=== PATIENT | female | born 1960 | race Caucasian/White ===

== ENCOUNTER 2017-09-01 08:25 | Inpatient (IN) | payer MEDICAID ==
[~2017-09-01] VITALS: Ht 152.4 cm; Wt 81.2 kg
[~2017-09-01 08:25] MED LIST: ALLO100T PO; CLAR10 PO; DILT90TA2 PO; FAMO20TA8 PO; LIP40 PO; MONT10TA21 PO; P20 PO; RIVA20TA PO; SPIR25TA6 PO
[2017-09-01] MEDS ORDERED: IPRATROPIUM BROMIDE (0.02%) 0.5MG/2.5ML NEB HHN STA (09:15)
[2017-09-01] MEDS ORDERED: DILTIAZEM HCL 5MG/ML 5ML VIAL IV ONE (09:15)
[2017-09-01] MEDS ORDERED: ASPIRIN 81MG TABLET PO STA (09:15)
[2017-09-01] MEDS ORDERED: ALBUTEROL (0.083%) 2.5MG/3ML NEB HHN STA (09:15)
[2017-09-01 10:00] LABS: HEMATOCRIT. 35.1 % (36.0-48.0); HEMOGLOBIN. 11.7 g/dL (12.0-16.0); MEAN CORPUSCULAR HEMOGLOBIN 27.9 pg (28.0-32.0); MEAN PLATELET VOLUME 7.3 fl (7.4-10.4); PLATELET 194 x1000/uL (130-400); RED BLOOD CELL COUNT 4.17 mill/uL (4.2-5.4); RED CELL DISTRIBUTION WIDTH 19.5 % (11.6-14.6)
[2017-09-01 10:07] LABS: CHLORIDE 104 mEq/L (98-107)
[2017-09-01 10:40] LABS: PLATELET ESTIMATE NORMAL
[2017-09-01] MEDS: FUROSEMIDE 40MG/4ML VIAL IVP NR ×2 (13:31→14:12)
[2017-09-01 16:00] VITALS: BP 131/70
[2017-09-01 16:02] VITALS: BP 131/70
[2017-09-01] MEDS ORDERED: DIPHENHYDRAMINE 50MG/ML VIAL IV PRN (18:45)
[2017-09-01] MEDS ORDERED: ONDANSETRON HCL 4MG/2ML VIAL IV PRN (18:45)
[2017-09-01 19:47] VITALS: BP 139/73
[2017-09-01] MEDS ORDERED: DIGOXIN 500MCG/2ML AMP IV NR (20:30)
[2017-09-01] MEDS: ALPRAZOLAM 0.5 MG TABLET PO PRN (21:07)
[2017-09-01] MEDS: ATORVASTATIN CALCIUM 40MG TABLET PO SCH (21:07)
[2017-09-01] MEDS: MONTELUKAST SODIUM 10MG TABLET PO SCH (21:07)
[2017-09-01] MEDS: FAMOTIDINE 20MG TABLET PO SCH (21:07)
[2017-09-01] MEDS: ACETAMINOPHEN 325MG TABLET PO PRN (21:17)
[2017-09-01] MEDS: DILTIAZEM HCL 90MG TABLET PO SCH (23:02)
[2017-09-01] MEDS: SODIUM CHLORIDE 0.9% INJ 3ML FLUSH IVF SCH (23:59)
[2017-09-02] MEDS ORDERED: DIGOXIN 500MCG/2ML AMP IV NR (00:30)
[2017-09-02 01:00] VITALS: BP 164/76
[2017-09-02 05:00] VITALS: BP 160/77
[2017-09-02] MEDS: ACETAMINOPHEN 325MG TABLET PO PRN (05:43)
[2017-09-02] MEDS: SODIUM CHLORIDE 0.9% INJ 3ML FLUSH IVF SCH ×3 (05:44→21:00)
[2017-09-02] MEDS: CLONIDINE 0.1MG TABLET PO PRN ×3 (05:44→23:16)
[2017-09-02] MEDS: DILTIAZEM HCL 90MG TABLET PO SCH ×3 (05:44→21:00)
[2017-09-02 08:00] VITALS: BP 153/61
[2017-09-02] MEDS: LORATADINE 10MG TABLET PO SCH (08:21)
[2017-09-02] MEDS: SPIRONOLACTONE 25MG TABLET PO SCH (08:21)
[2017-09-02] MEDS: MAGNESIUM/ALUMINUM HYDROXIDE/SIMETHICONE 30ML UDC PO PRN (08:26)
[2017-09-02] MEDS: BUDESONIDE 0.25MG/2ML NEB HHN SCH (08:49)
[2017-09-02] MEDS: IPRATROPIUM BROMIDE (0.02%) 0.5MG/2.5ML NEB HHN PRN ×3 (08:49→20:34)
[2017-09-02] MEDS: ALLOPURINOL 100 MG TABLET PO SCH (10:22)
[2017-09-02 12:00] VITALS: BP 147/58
[2017-09-02] MEDS ORDERED: CEFTRIAXONE 2 G PREMIX 50 ML IV SCH (14:00)
[2017-09-02] MEDS: CEFTRIAXONE 2 G in DEXTROSE 5% WATER 50 ML IV SCH (15:57)
[2017-09-02] MEDS: AZITHROMYCIN 500 MG in DEXT 5% WATER 250 ML IV SCH (15:57)
[2017-09-02 16:00] VITALS: BP 168/70
[2017-09-02 16:35] LABS: CLARITY URINE CLEAR (CLEAR); COLOR URINE YELLOW (YELLOW); KETONES URINE NEGATIVE (NEGATIVE); LEUKOCYTE ESTERASE URINE NEGATIVE (NEGATIVE); NITRITE URINE NEGATIVE (NEGATIVE); OCCULT BLOOD URINE NEGATIVE (NEGATIVE); PH URINE 8.5 (4.5-8.0); PROTEIN URINE 2+ (NEGATIVE); SPECIFIC GRAVITY URINE 1.018 (1.005-1.030)
[2017-09-02 16:47] LABS: *AMPHETAMINES SCREEN URINE NEGATIVE (NEGATIVE)
[2017-09-02 16:48] LABS: *BARBITURATES SCREEN URINE NEGATIVE (NEGATIVE); *BENZODIAZEPINES SCREEN URINE NEGATIVE (NEGATIVE); *COCAINE SCREEN URINE NEGATIVE (NEGATIVE); METHADONE URINE SCREEN NEGATIVE (NEGATIVE); OPIATES URINE SCREEN NEGATIVE (NEGATIVE)
[2017-09-02 16:49] LABS: CANNABINOID URINE SCREEN NEGATIVE (NEGATIVE); PHENCYCLIDINE URINE SCREEN NEGATIVE (NEGATIVE)
[2017-09-02] MEDS: RIVAROXABAN 20 MG TABLET PO SCH (16:56)
[2017-09-02 20:00] VITALS: BP 177/91
[2017-09-02] MEDS: ATORVASTATIN CALCIUM 40MG TABLET PO SCH (21:00)
[2017-09-02] MEDS: MONTELUKAST SODIUM 10MG TABLET PO SCH (21:00)
[2017-09-02] MEDS: FAMOTIDINE 20MG TABLET PO SCH (21:00)
[2017-09-03] VITALS: BP 150/60
[2017-09-03 04:00] VITALS: BP 140/60
[2017-09-03] MEDS: DILTIAZEM HCL 90MG TABLET PO SCH ×3 (05:36→18:51)
[2017-09-03] MEDS: SODIUM CHLORIDE 0.9% INJ 3ML FLUSH IVF SCH ×2 (05:37→13:32)
[2017-09-03] MEDS: ACETAMINOPHEN 325MG TABLET PO PRN ×2 (05:39→18:54)
[2017-09-03 08:00] VITALS: BP 164/65
[2017-09-03] MEDS: BUDESONIDE 0.25MG/2ML NEB HHN SCH (08:27)
[2017-09-03] MEDS: IPRATROPIUM BROMIDE (0.02%) 0.5MG/2.5ML NEB HHN PRN ×2 (08:27→11:41)
[2017-09-03] MEDS: LORATADINE 10MG TABLET PO SCH (09:50)
[2017-09-03] MEDS: SPIRONOLACTONE 25MG TABLET PO SCH (09:50)
[2017-09-03] MEDS: ALLOPURINOL 100 MG TABLET PO SCH (09:50)
[2017-09-03 12:00] VITALS: BP 133/73
[2017-09-03] MEDS: PROMETHAZINE/DEXTROMETHORPHAN 6.25-15MG/5ML BOTTLE 120ML PO PRN (13:32)
[2017-09-03] MEDS ORDERED: DILTIAZEM HCL 5MG/ML 5ML VIAL IV PRN (13:45)
[2017-09-03] MEDS ORDERED: DIGOXIN 125MCG TABLET PO NR (13:45)
[2017-09-03] MEDS ORDERED: POTASSIUM CHLORIDE 20MEQ TABLET SR PO NR (13:45)
[2017-09-03] MEDS: CEFTRIAXONE 2 G in DEXTROSE 5% WATER 50 ML IV SCH (15:10)
[2017-09-03] MEDS: FUROSEMIDE 40MG/4ML VIAL IVP SCH ×2 (15:15→17:15)
[2017-09-03] MEDS: LOSARTAN POTASSIUM 25 MG TABLET PO SCH ×2 (15:17→21:40)
[2017-09-03 15:27] LABS: BASOPHILS % 0.6 % (0.0-2.0); EOSINOPHILS % 1.6 % (0.0-5.0); HEMATOCRIT. 39.5 % (36.0-48.0); HEMOGLOBIN. 13.3 g/dL (12.0-16.0); LYMPHOCYTES % 8.7 % (20.0-50.0); MEAN CORPUSCULAR HEMOGLOBIN 28.2 pg (28.0-32.0); MEAN CORPUSCULAR VOLUME 83.8 fL (81.0-99.0); MEAN PLATELET VOLUME 7.9 fl (7.4-10.4); MONOCYTES % 7.5 % (2.0-8.0); NEUTROPHILS % 81.6 % (40.0-76.0); PLATELET 235 x1000/uL (130-400); RED BLOOD CELL COUNT 4.71 mill/uL (4.2-5.4)
[2017-09-03] MEDS: AZITHROMYCIN 500 MG in DEXT 5% WATER 250 ML IV SCH (15:55)
[2017-09-03 16:00] VITALS: BP 132/69
[2017-09-03] MEDS: RIVAROXABAN 20 MG TABLET PO SCH (18:50)
[2017-09-03] MEDS: IPRATROPIUM/ALBUTEROL 0.5-3(2.5)MG/3ML NEB HHN SCH (19:51)
[2017-09-03 20:00] VITALS: BP 143/69
[2017-09-03] MEDS: ATORVASTATIN CALCIUM 40MG TABLET PO SCH (21:40)
[2017-09-03] MEDS: FAMOTIDINE 20MG TABLET PO SCH (21:40)
[2017-09-03] MEDS: POTASSIUM CHLORIDE 20MEQ TABLET SR PO SCH (21:40)
[2017-09-03] MEDS: MONTELUKAST SODIUM 10MG TABLET PO SCH (21:40)
[2017-09-04 00:30] VITALS: BP 135/59
[2017-09-04] MEDS: DILTIAZEM HCL 90MG TABLET PO SCH ×3 (01:00→13:16)
[2017-09-04] MEDS: IPRATROPIUM/ALBUTEROL 0.5-3(2.5)MG/3ML NEB HHN SCH ×4 (01:06→21:06)
[2017-09-04] MEDS: ACETYLCYSTEINE 100MG/ML 10% VIAL 4ML INH SCH ×3 (01:06→15:46)
[2017-09-04 04:30] VITALS: BP 141/64
[2017-09-04] MEDS: FUROSEMIDE 40MG/4ML VIAL IVP SCH (05:43)
[2017-09-04] MEDS: ALPRAZOLAM 0.5 MG TABLET PO PRN (06:01)
[2017-09-04 07:22] LABS: HDL CHOLESTEROL 75 mg/dL (40-59); LDL CHOLESTEROL 62 mg/dL (5-100)
[2017-09-04 08:00] VITALS: BP 177/105
[2017-09-04] MEDS: MAGNESIUM/ALUMINUM HYDROXIDE/SIMETHICONE 30ML UDC PO PRN (08:58)
[2017-09-04] MEDS: LOSARTAN POTASSIUM 25 MG TABLET PO SCH ×2 (08:59→20:32)
[2017-09-04] MEDS: POTASSIUM CHLORIDE 20MEQ TABLET SR PO SCH ×2 (08:59→18:22)
[2017-09-04] MEDS: SPIRONOLACTONE 25MG TABLET PO SCH (08:59)
[2017-09-04] MEDS: LORATADINE 10MG TABLET PO SCH (08:59)
[2017-09-04] MEDS: ALLOPURINOL 100 MG TABLET PO SCH (08:59)
[2017-09-04] MEDS: BUDESONIDE 0.25MG/2ML NEB HHN SCH (09:46)
[2017-09-04] MEDS: PROMETHAZINE/DEXTROMETHORPHAN 6.25-15MG/5ML BOTTLE 120ML PO PRN (11:38)
[2017-09-04 12:14] VITALS: BP 173/91
[2017-09-04] MEDS: DILTIAZEM HCL 240MG ER (24HR) PO SCH ×2 (13:30→20:30)
[2017-09-04] MEDS ORDERED: DIGOXIN 500MCG/2ML AMP IV PRN (13:30)
[2017-09-04] MEDS: SODIUM CHLORIDE 0.9% INJ 3ML FLUSH IVF SCH ×2 (14:22→22:06)
[2017-09-04] MEDS: CEFTRIAXONE 2 G in DEXTROSE 5% WATER 50 ML IV SCH (15:43)
[2017-09-04] MEDS ORDERED: MAGNESIUM/ALUMINUM HYDROXIDE/SIMETHICONE 30ML UDC PO PRN (16:00)
[2017-09-04] MEDS: AZITHROMYCIN 500 MG in DEXT 5% WATER 250 ML IV SCH (16:23)
[2017-09-04 16:24] VITALS: BP 173/57
[2017-09-04] MEDS: SUCRALFATE 1G TABLET PO SCH ×2 (18:17→20:31)
[2017-09-04] MEDS: RIVAROXABAN 20 MG TABLET PO SCH (18:22)
[2017-09-04] MEDS: DIGOXIN 125MCG TABLET PO SCH (18:22)
[2017-09-04 20:00] VITALS: BP 190/85
[2017-09-04] MEDS: MONTELUKAST SODIUM 10MG TABLET PO SCH (20:31)
[2017-09-04] MEDS: ATORVASTATIN CALCIUM 40MG TABLET PO SCH (20:31)
[2017-09-04] MEDS: ACETAMINOPHEN 325MG TABLET PO PRN (20:31)
[2017-09-04] MEDS: FUROSEMIDE 40MG TABLET PO SCH (20:31)
[2017-09-04] MEDS ORDERED: FAMOTIDINE 20MG TABLET PO SCH (21:00)
[2017-09-05] VITALS: BP 146/62
[2017-09-05] MEDS: ACETYLCYSTEINE 100MG/ML 10% VIAL 4ML INH SCH ×3 (01:47→13:43)
[2017-09-05] MEDS: IPRATROPIUM/ALBUTEROL 0.5-3(2.5)MG/3ML NEB HHN SCH ×3 (01:47→13:42)
[2017-09-05] MEDS: CLONIDINE 0.1MG TABLET PO PRN (03:58)
[2017-09-05] MEDS: ACETAMINOPHEN 325MG TABLET PO PRN (03:59)
[2017-09-05 05:00] VITALS: BP 145/54
[2017-09-05 06:32] LABS: BASOPHILS % 0.6 % (0.0-2.0); EOSINOPHILS % 1.8 % (0.0-5.0); HEMATOCRIT. 44.4 % (36.0-48.0); HEMOGLOBIN. 14.7 g/dL (12.0-16.0); LYMPHOCYTES % 15.5 % (20.0-50.0); MEAN CORPUSCULAR HEMOGLOBIN 28.1 pg (28.0-32.0); MEAN CORPUSCULAR VOLUME 84.7 fL (81.0-99.0); MEAN PLATELET VOLUME 7.8 fl (7.4-10.4); MONOCYTES % 11.7 % (2.0-8.0); NEUTROPHILS % 70.4 % (40.0-76.0); PLATELET 264 x1000/uL (130-400); RED BLOOD CELL COUNT 5.24 mill/uL (4.2-5.4)
[2017-09-05] MEDS: SUCRALFATE 1G TABLET PO SCH ×4 (06:46→21:34)
[2017-09-05] MEDS: SODIUM CHLORIDE 0.9% INJ 3ML FLUSH IVF SCH ×3 (06:46→21:43)
[2017-09-05] MEDS: BUDESONIDE 0.25MG/2ML NEB HHN SCH (07:21)
[2017-09-05 08:00] VITALS: BP 143/63
[2017-09-05] MEDS ORDERED: PANTOPRAZOLE SODIUM 40 MG/VIAL IV SCH (09:00)
[2017-09-05] MEDS ORDERED: AZITHROMYCIN 500 MG TABLET PO SCH (09:00)
[2017-09-05] MEDS: DILTIAZEM HCL 240MG ER (24HR) PO SCH ×2 (09:01→21:33)
[2017-09-05] MEDS: LORATADINE 10MG TABLET PO SCH (09:03)
[2017-09-05] MEDS: LOSARTAN POTASSIUM 25 MG TABLET PO SCH ×2 (09:03→21:35)
[2017-09-05] MEDS: POTASSIUM CHLORIDE 20MEQ TABLET SR PO SCH ×2 (09:03→16:33)
[2017-09-05] MEDS: FUROSEMIDE 40MG TABLET PO SCH (09:03)
[2017-09-05] MEDS: ALLOPURINOL 100 MG TABLET PO SCH (09:03)
[2017-09-05] MEDS: SPIRONOLACTONE 25MG TABLET PO SCH (09:04)
[2017-09-05] MEDS ORDERED: CLONIDINE 0.1MG TABLET PO PRN (13:45)
[2017-09-05] MEDS ORDERED: CLONIDINE 0.2MG TABLET PO PRN (13:45)
[2017-09-05] MEDS: NEBIVOLOL HCL 5 MG TABLET PO SCH ×2 (14:10→21:38)
[2017-09-05 16:00] VITALS: BP 103/65
[2017-09-05] MEDS: CEFTRIAXONE 2 G in DEXTROSE 5% WATER 50 ML IV SCH (16:32)
[2017-09-05] MEDS: RIVAROXABAN 20 MG TABLET PO SCH (16:33)
[2017-09-05] MEDS: DIGOXIN 125MCG TABLET PO SCH (17:37)
[2017-09-05] MEDS: ALPRAZOLAM 0.5 MG TABLET PO PRN (18:00)
[2017-09-05 20:00] VITALS: BP 140/71
[2017-09-05] MEDS ORDERED: ALPRAZOLAM 0.5 MG TABLET PO PRN (20:30)
[2017-09-05] MEDS: ATORVASTATIN CALCIUM 40MG TABLET PO SCH (21:33)
[2017-09-05] MEDS: OMEPRAZOLE 20MG CAPSULE EXTENDED RELEASE PO SCH (21:34)
[2017-09-05] MEDS: MONTELUKAST SODIUM 10MG TABLET PO SCH (21:35)
[2017-09-06] VITALS: BP 172/72
[2017-09-06 04:00] VITALS: BP 155/74
[2017-09-06 06:23] LABS: BASOPHILS % 0.7 % (0.0-2.0); HEMATOCRIT. 42.9 % (36.0-48.0); HEMOGLOBIN. 14.3 g/dL (12.0-16.0); LYMPHOCYTES % 19.6 % (20.0-50.0); MEAN CORPUSCULAR VOLUME 84.2 fL (81.0-99.0); MEAN PLATELET VOLUME 8.2 fl (7.4-10.4); MONOCYTES % 10.4 % (2.0-8.0); NEUTROPHILS % 67.3 % (40.0-76.0); PLATELET 265 x1000/uL (130-400); RED CELL DISTRIBUTION WIDTH 18.3 % (11.6-14.6)
[2017-09-06] MEDS: SUCRALFATE 1G TABLET PO SCH ×4 (06:28→21:13)
[2017-09-06] MEDS: OMEPRAZOLE 20MG CAPSULE EXTENDED RELEASE PO SCH (06:28)
[2017-09-06] MEDS: SODIUM CHLORIDE 0.9% INJ 3ML FLUSH IVF SCH ×3 (06:29→21:21)
[2017-09-06 08:00] VITALS: BP 158/67
[2017-09-06] MEDS: ALLOPURINOL 100 MG TABLET PO SCH (08:35)
[2017-09-06] MEDS: SPIRONOLACTONE 25MG TABLET PO SCH (08:35)
[2017-09-06] MEDS: LOSARTAN POTASSIUM 25 MG TABLET PO SCH ×2 (08:36→21:13)
[2017-09-06] MEDS: DILTIAZEM HCL 240MG ER (24HR) PO SCH ×2 (08:36→21:14)
[2017-09-06] MEDS: NEBIVOLOL HCL 5 MG TABLET PO SCH ×2 (08:37→21:00)
[2017-09-06] MEDS: LORATADINE 10MG TABLET PO SCH (08:37)
[2017-09-06 12:00] VITALS: BP 125/74
[2017-09-06] MEDS ORDERED: IPRATROPIUM BROMIDE (0.02%) 0.5MG/2.5ML NEB HHN PRN (13:30)
[2017-09-06] MEDS ORDERED: MAGNESIUM/ALUMINUM HYDROXIDE/SIMETHICONE 30ML UDC PO PRN (13:30)
[2017-09-06 16:00] VITALS: BP 141/69
[2017-09-06] MEDS: DIGOXIN 125MCG TABLET PO SCH (16:28)
[2017-09-06] MEDS: RIVAROXABAN 20 MG TABLET PO SCH (16:41)
[2017-09-06 20:00] VITALS: BP 118/57
[2017-09-06] MEDS: ATORVASTATIN CALCIUM 40MG TABLET PO SCH (21:13)
[2017-09-06] MEDS: MONTELUKAST SODIUM 10MG TABLET PO SCH (21:13)
[2017-09-06] MEDS: FAMOTIDINE 20MG TABLET PO SCH (21:13)
[2017-09-07] VITALS: BP 144/59
[2017-09-07] MEDS: ACETAMINOPHEN 325MG TABLET PO PRN (00:05)
[2017-09-07 04:00] VITALS: BP 125/67
[2017-09-07] MEDS: SODIUM CHLORIDE 0.9% INJ 3ML FLUSH IVF SCH ×2 (06:36→14:00)
[2017-09-07] MEDS: SUCRALFATE 1G TABLET PO SCH ×3 (06:36→17:44)
[2017-09-07 07:07] LABS: BASOPHILS % 0.9 % (0.0-2.0); EOSINOPHILS % 2.7 % (0.0-5.0); HEMOGLOBIN. 13.1 g/dL (12.0-16.0); LYMPHOCYTES % 23.5 % (20.0-50.0); MEAN CORPUSCULAR HEMOGLOBIN 28.1 pg (28.0-32.0); MEAN CORPUSCULAR VOLUME 83.5 fL (81.0-99.0); MEAN PLATELET VOLUME 8.2 fl (7.4-10.4); MONOCYTES % 11.5 % (2.0-8.0); NEUTROPHILS % 61.4 % (40.0-76.0); PLATELET 274 x1000/uL (130-400); RED BLOOD CELL COUNT 4.68 mill/uL (4.2-5.4); RED CELL DISTRIBUTION WIDTH 17.9 % (11.6-14.6)
[2017-09-07 08:00] VITALS: BP 162/71
[2017-09-07 08:07] LABS: CHLORIDE 102 mEq/L (98-107)
[2017-09-07] MEDS: FAMOTIDINE 20MG TABLET PO SCH (08:57)
[2017-09-07] MEDS: LORATADINE 10MG TABLET PO SCH (08:57)
[2017-09-07] MEDS: DILTIAZEM HCL 240MG ER (24HR) PO SCH (08:58)
[2017-09-07] MEDS: ALLOPURINOL 100 MG TABLET PO SCH (08:58)
[2017-09-07] MEDS: SPIRONOLACTONE 25MG TABLET PO SCH (08:58)
[2017-09-07] MEDS: NEBIVOLOL HCL 5 MG TABLET PO SCH (08:59)
[2017-09-07] MEDS: LOSARTAN POTASSIUM 25 MG TABLET PO SCH (09:00)
[2017-09-07 12:00] VITALS: BP 148/65
[2017-09-07 16:00] VITALS: BP 144/66
[2017-09-07 16:24] VITALS: BP 140/68
[2017-09-07] MEDS: DIGOXIN 125MCG TABLET PO SCH (17:44)
[2017-09-07] MEDS: RIVAROXABAN 20 MG TABLET PO SCH (17:44)
== END 2017-09-07 19:50 | disposition home or self-care (01) | DRG 720 ==
LOC: ER 08:25 → 5WST 13:19 → ENRESERV 13:48
PROVIDERS: ADMIT Internal Medicine; ATTEND Internal Medicine
DX: A41.9 Sepsis, unspecified organism (principal); J96.00 Acute respiratory failure, unspecified whether with hypoxia or hypercapnia; I50.43 Acute on chronic combined systolic (congestive) and diastolic (congestive) heart failure; N17.9 Acute kidney failure, unspecified; I13.0 Hypertensive heart and chronic kidney disease with heart failure and stage 1 through stage 4 chronic kidney disease, or unspecified chronic kidney disease; J18.9 Pneumonia, unspecified organism; I27.20 Pulmonary hypertension, unspecified; J45.909 Unspecified asthma, uncomplicated; E78.00 Pure hypercholesterolemia, unspecified; E78.5 Hyperlipidemia, unspecified; F32.9 Major depressive disorder, single episode, unspecified; N18.9 Chronic kidney disease, unspecified; I48.1 Persistent atrial fibrillation; Z98.891 History of uterine scar from previous surgery; Z79.899 Other long term (current) drug therapy; Z79.01 Long term (current) use of anticoagulants; Z88.8 Allergy status to other drugs, medicaments and biological substances
CPT/HCPCS: 36415; 71045; 80048; 80053; 80061; 80305; 81003; 83605; 83690; 83735; 83880; 84100; 84443; 84484; 85025; 87040; 93005; 94640; 96374; 96375; 97162; 99285; C1893; C9113; J0456; J0696; J1160; J1940; J3490; J7040; J7060; J7608; J7611; J7620; J7626